=== PATIENT | male | born 2000 ===

== ENCOUNTER 2022-01-11 16:42 | Emergency (ER) | payer OTHER ==
[2022-01-11 16:52] VITALS: BP 132/84; PULSE 67; TEMP 98; BMI 22.4
[2022-01-11 17:41] LABS: BASO % 0.4 % (0-2.0); EOS % 1.2 % (0-4.5); HEMATOCRIT 41.9 % (35.4-49); HEMOGLOBIN 14.1 GM/dL (11.7-16.9); LYMPH % 30.3 % (8-40); MCH 28.4 pg (25.7-33.7); MCHC 33.7 g/dl (32.0-35.9); MEAN CELL VOLUME 84.3 fl (80-96); MEAN PLT VOLUME 8.1 fl (7.5-11.1); MONO % 10.2 % (3.8-10.2); NEUT % 57.9 % (42.8-82.8); PLATELET COUNT 286 10^3/uL (134-434); RBC 4.97 M/mm3 (4.00-5.60); WHITE BLOOD COUNT 5.8 K/mm3 (4.0-10.0)
== END 2022-01-11 18:50 | disposition home or self-care (01) ==
LOC: JER 16:42
DX: K62.5 Hemorrhage of anus and rectum (principal)
CPT/HCPCS: 36415; 82272; 85025; 99283-25

== ENCOUNTER 2024-09-03 17:11 | Emergency (ER) | payer BC, OTHER ==
[2024-09-03 17:21] VITALS: BMI 20.5
[2024-09-03 19:27] LABS: BASO % 0.4 % (0-2.0); EOS % 1.9 % (0-4.5); HEMATOCRIT 44.6 % (35.4-49); HEMOGLOBIN 14.7 GM/dL (11.7-16.9); LYMPH % 34.2 % (8-40); MCH 28.1 pg (25.7-33.7); MCHC 33.1 g/dl (32.0-35.9); MEAN PLT VOLUME 8.2 fl (7.5-11.1); NEUT % 55.5 % (42.8-82.8); PLATELET COUNT 298 10^3/uL (134-434); RBC 5.24 M/mm3 (4.00-5.60); RDW 13.3 % (11.9-15.9); WHITE BLOOD COUNT 7.2 K/mm3 (4.0-10.0)
[2024-09-03 19:53] LABS: POTASSIUM 4.4 mmol/L (3.5-5.1)
[2024-09-03 19:55] LABS: CALCIUM 9.1 mg/dL (8.5-10.1)
[2024-09-03 19:56] LABS: BLOOD UREA NITROGEN 15.5 mg/dL (7-18)
[2024-09-03 19:58] LABS: CREATININE 0.9 mg/dL (0.55-1.3)
[2024-09-03 20:00] LABS: BILIRUBIN,TOTAL 0.6 mg/dL (0.2-1); TOT PROT 7.7 g/dl (6.4-8.2)
[2024-09-03 20:28] VITALS: BP 131/62; PULSE 65; RESP 16; TEMP 98
== END 2024-09-03 20:28 | disposition home or self-care (01) ==
LOC: JER 17:11
DX: K62.5 Hemorrhage of anus and rectum (principal); R10.33 Periumbilical pain; R53.1 Weakness; R53.83 Other fatigue
CPT/HCPCS: 36415; 80053; 83690; 85025; 86850; 86900; 86901; 99283-25